=== PATIENT | male | born 1995 | race African-American/Black ===

== ENCOUNTER 2017-12-17 16:23 | Emergency (ER) | payer SELFPAY ==
[2017-12-17 16:56] LABS: Bilirubin Small (Negative); Blood, Urine Moderate (Negative); Clarity TURBID (Clear); Glucose, Urine (Dipstick) Negative (Negative); Leukocyte Large (Negative); Nitrite Negative (Negative); Protein, Urine (Dipstick) 100 mg/dL (Neg-Trace); Specific Gravity, Urine 1.035 (1.002-1.036)
[2017-12-17 16:57] LABS: Bacteria/HPF None Seen HPF (None Seen); RBC/HPF 21-50 HPF (0-3); Squamous Epithelial None Seen HPF (0-3)
[2017-12-17 17:07] LABS: Hyaline Casts/LPF NONE SEEN LPF (0-3 Hyaline); Other Casts/LPF None Seen LPF (0-3 Hyaline)
[2017-12-17] MEDS ORDERED: cefTRIAXone\\ROCEPHIN 250 MG VIAL ONE (17:59)
[2017-12-17] MEDS ORDERED: Lidocaine 1% (PF) 30 ML VIAL ONE (18:00)
[2017-12-17] MEDS ORDERED: Azithromycin 250 MG TAB ONE (18:04)
[2017-12-20 01:15] LABS: Chlamydia by PCR Inconclusive (NotDetected); GC by PCR Inconclusive (NotDetected)
== END 2017-12-17 18:36 | disposition home or self-care (01) ==
LOC: ERS 16:23
DX: A64 Unspecified sexually transmitted disease (principal)
CPT/HCPCS: 81003; 81015; 87086; 87491; 87591; 96372; J0696; J2001

== ENCOUNTER 2021-10-19 14:45 | Emergency (ER) | payer SELFPAY | END 2021-10-19 17:21 | disposition left against medical advice (07) | LOC: ERS 14:45 | DX: Z53.21 Procedure and treatment not carried out due to patient leaving prior to being seen by health care provider (principal) ==